=== PATIENT | female | born 1935 | race Caucasian/White ===

== ENCOUNTER → 2020-10-26 | Outpatient (CLI) | payer OTHER | LOC: SJCVCIMAG 08:24 | PROVIDERS: ATTEND Nuclear Medicine Nuclear Cardiology | DX: I73.9 Peripheral vascular disease, unspecified (principal); I10 Essential (primary) hypertension; L97.929 Non-pressure chronic ulcer of unspecified part of left lower leg with unspecified severity; E78.00 Pure hypercholesterolemia, unspecified; I48.0 Paroxysmal atrial fibrillation; I35.0 Nonrheumatic aortic (valve) stenosis; F17.200 Nicotine dependence, unspecified, uncomplicated; Z90.49 Acquired absence of other specified parts of digestive tract; Z90.710 Acquired absence of both cervix and uterus; Z79.899 Other long term (current) drug therapy; Z82.49 Family history of ischemic heart disease and other diseases of the circulatory system ==

== ENCOUNTER → 2020-11-07 | Outpatient (CLI) | payer OTHER | LOC: HYPER 09:15 | PROVIDERS: ATTEND Emergency Medicine | DX: T87.81 Dehiscence of amputation stump (principal); I70.245 Atherosclerosis of native arteries of left leg with ulceration of other part of foot; L97.522 Non-pressure chronic ulcer of other part of left foot with fat layer exposed; I25.2 Old myocardial infarction; I48.0 Paroxysmal atrial fibrillation; I35.0 Nonrheumatic aortic (valve) stenosis; F41.9 Anxiety disorder, unspecified; F32.9 Major depressive disorder, single episode, unspecified; F17.200 Nicotine dependence, unspecified, uncomplicated; Z95.828 Presence of other vascular implants and grafts; Z90.49 Acquired absence of other specified parts of digestive tract; Z90.710 Acquired absence of both cervix and uterus; Z96.653 Presence of artificial knee joint, bilateral; Z95.818 Presence of other cardiac implants and grafts; Y83.5 Amputation of limb(s) as the cause of abnormal reaction of the patient, or of later complication, without mention of misadventure at the time of the procedure ==

== ENCOUNTER → 2020-11-22 | Outpatient (CLI) | payer OTHER | LOC: SJCVCIMAG 07:54 | PROVIDERS: ATTEND Internal Medicine Cardiovascular Disease | DX: I08.8 Other rheumatic multiple valve diseases (principal); I65.23 Occlusion and stenosis of bilateral carotid arteries; I11.9 Hypertensive heart disease without heart failure; I48.0 Paroxysmal atrial fibrillation; I73.9 Peripheral vascular disease, unspecified; R06.00 Dyspnea, unspecified; R53.83 Other fatigue; E78.00 Pure hypercholesterolemia, unspecified; F17.200 Nicotine dependence, unspecified, uncomplicated; Z98.890 Other specified postprocedural states; Z90.49 Acquired absence of other specified parts of digestive tract; Z79.899 Other long term (current) drug therapy; Z82.49 Family history of ischemic heart disease and other diseases of the circulatory system ==

== ENCOUNTER → 2020-11-22 | Outpatient (CLI) | payer OTHER | LOC: HYPER 08:18 | PROVIDERS: ATTEND Emergency Medicine | DX: T87.81 Dehiscence of amputation stump (principal); I70.245 Atherosclerosis of native arteries of left leg with ulceration of other part of foot; L97.522 Non-pressure chronic ulcer of other part of left foot with fat layer exposed; I25.2 Old myocardial infarction; I48.0 Paroxysmal atrial fibrillation; I35.0 Nonrheumatic aortic (valve) stenosis; F41.9 Anxiety disorder, unspecified; F32.9 Major depressive disorder, single episode, unspecified; F17.200 Nicotine dependence, unspecified, uncomplicated; Z95.828 Presence of other vascular implants and grafts; Z90.49 Acquired absence of other specified parts of digestive tract; Z90.710 Acquired absence of both cervix and uterus; Z96.653 Presence of artificial knee joint, bilateral; Z95.818 Presence of other cardiac implants and grafts; Y83.5 Amputation of limb(s) as the cause of abnormal reaction of the patient, or of later complication, without mention of misadventure at the time of the procedure ==

== ENCOUNTER → 2020-12-11 | Outpatient (CLI) | payer OTHER | LOC: SJCVCIMAG 12-04 10:22 | PROVIDERS: ATTEND Internal Medicine Cardiovascular Disease | DX: I11.9 Hypertensive heart disease without heart failure (principal); I48.91 Unspecified atrial fibrillation; R06.00 Dyspnea, unspecified; R53.83 Other fatigue; E78.5 Hyperlipidemia, unspecified; I25.10 Atherosclerotic heart disease of native coronary artery without angina pectoris; I73.9 Peripheral vascular disease, unspecified; F17.200 Nicotine dependence, unspecified, uncomplicated; Z79.899 Other long term (current) drug therapy ==

== ENCOUNTER → 2021-05-08 | Outpatient (CLI) | payer OTHER | LOC: SJCVCIMAG 11:54 | PROVIDERS: ATTEND Internal Medicine Cardiovascular Disease | DX: I70.201 Unspecified atherosclerosis of native arteries of extremities, right leg (principal); E78.00 Pure hypercholesterolemia, unspecified; I10 Essential (primary) hypertension; I48.91 Unspecified atrial fibrillation; F17.200 Nicotine dependence, unspecified, uncomplicated; Z72.89 Other problems related to lifestyle; Z82.49 Family history of ischemic heart disease and other diseases of the circulatory system; Z79.899 Other long term (current) drug therapy ==

== ENCOUNTER → 2021-05-13 | Outpatient (CLI) | payer OTHER ==
[2021-05-13] VITALS (8 sets, daily range): BP systolic 111–133; BP diastolic 57–91
[~2021-05-13] VITALS: Ht 167.6 cm; Wt 46.3 kg
[~2021-05-13] MED LIST: AMIODARONE HCL400 MG PO; COZAAR 25 MG TA25 M1 PO; ELIQUIS2.5 MG PO; LINZESS290 MCG PO; PLAVIX 75 MG TA75 MG PO; ROSUVASTATIN CA20 MG PO; TOPROL XL100 MG PO; TOPROL XL50 MG PO
[2021-05-13 10:25] LABS: HEMATOCRIT 36.8 % (37.0-47.0); HEMOGLOBIN 11.4 gm/dL (12.0-15.0); MCH 24.6 pg (26.0-34.0); MCV 79.5 fL (80.0-100.0); RBC 4.63 mil/uL (4.20-5.00); RDW 27.3 % (10.5-14.5); WBC 6.4 thou/uL (4.0-11.0)
[2021-05-13 10:42] LABS: CALCIUM 8.8 mg/dL (8.5-10.1); CREATININE 0.8 mg/dL (0.6-1.0); POTASSIUM 3.8 mmol/L (3.5-5.1)
--- NOTE | 2021-05-13 11:22 | EKG ---
[place] [address] [facility] [employer] [employer] [place] [address] ELECTROCARDIOGRAM REPORT Name: HYUN CRAWFORD Room #: REG [facility]#: [id number] Admission: 05/13/21 Attend Phys: Ant Springer MD Discharge: Date of : 37 Report #: [id number] [facility] Test Date: 2021-05-13 Test Time: 09:58:12 Pat Name: HYUN CRAWFORD Department: Room: Gender: F At Risk Specialist: [facility] : 1935 Requested By: Ant Springer Order Number: [id number] : Joseluis Nguyễn Measurements Intervals [place] Rate: 129 P: [place]: QRS: 35 QRSD: 76 T: 256 QT: 279 QTc: 409 Interpretive Statements Atrial fibrillation Anteroseptal infarct, old Repolarization abnormality, prob rate related No previous ECG available for comparison Electronically Signed On 05-13-2021 11:22:09 [employer] by Joseluis Nguyễn [email or web address] <ELECTRONICALLY SIGNED> By: Joseluis Nguyễn MD, [facility] 05/13/21 [id number] Joseluis Nguyễn MD, FACC /EPI
--- NOTE | 2021-05-13 16:42 | 2DMMODE ---
[facility] [place] [address] 2 D/M-MODE ECHOCARDIOGRAM Name: HYUN CRAWFORD Room #: REG LANA [facility]#: [id number] Admission: 05/13/21 Attend Phys: Ant Springer MD Discharge: Date of : 37 Report #: [id number] THIS REPORT FOR: cc: RUBY BOYLE FAMILY PHYSICIAN or PCP Giuseppe Richard MD [facility] ~ APPROVED REPORT Study performed: 05/13/2021 15:29:10 EXAM: Comprehensive 2D, Doppler, and color-flow Echocardiogram Patient Location: Holding Status: routine BSA: 1.50 HR: 120 bpm BP: 131/91 mmHg Rhythm: Atrial Fibrillation Other Information Study Quality: Good Indications Aortic stenosis, Afib. (Heart rate ranged from 90s-130s). 2D Dimensions IVSd: 11.86 (7-11mm) LVOT Diam: 19.00 (18-24mm) LVDd: 44.10 mm PWd: 11.86 (7-11mm) LVDs: 36.05 (25-40mm) Left Atrium: 41.99 (27-40mm) Aortic Root: 27.80 mm Volumes Left Atrial Volume (Systole) Single Plane 4CH: 112.82 mL Single Plane 2CH: 90.84 mL Aortic Valve AoV Peak Zain.: 2.98 m/s AO Peak Gr.: 35.42 mmHg LVOT Max P.77 mmHg AO Mean Gr.: 21.78 mmHg AO V2 Mean: 2.24 m/s LVOT Max V: 0.44 m/s AO V2 VTI: 175.61 cm [facility] [address] [place] [address] 2 D/M-MODE ECHOCARDIOGRAM Name: HYUN CRAWFORD Room #: REG CL [facility]#: [id number] Admission: 05/13/21 Attend Phys: Ant Springer, Discharge: Date of : 37 Report #: [id number] Vmax: 0.42 cm2 Mitral Valve MV Decel. Time: 168.15 ms MV E Max Zain.: 1.17 m/s Pulmonary Valve PV Peak Zain.: 0.58 m/s PV Peak Gr.: 1.33 mmHg Tricuspid Valve TR Peak Zain.: 2.80 m/s RAP Estimate: 15.00 mmHg TR Peak Gr.: 32.00 mmHg PA Pressure: 47.00 mmHg Left Ventricle The left ventricle is normal size. Mild concentric left ventricular hypertrophy. Left ventricular systolic function is moderately decreased. LVEF is 35-40%. This study is not technically sufficient to allow evaluation of the LV diastolic function due to atrial fibrillation. Right Ventricle The right ventricle is normal size. Right ventricle is mildly hypokinetic. Atria Left atrium is severely dilated. Right atrium is moderately dilated. Aortic Valve Aortic valve is heavily calcified. Trace aortic regurgitation. There is severe valvular aortic stenosis. Calculated aortic valve area is 0.5 - 0.6 cm2 with maximum pressure gradient of 22mmHg and mean pressure gradient of 13mmHg. (Underestimated gradients with moderate demise in LV function). Mitral Valve Mitral valve leaflets are moderately sclerotic. Heavily calcified annulus. Mild to moderate mitral regurgitation. No evidence of mitral valve stenosis. Tricuspid Valve The tricuspid valve is normal in structure. Moderate to severe tricuspid regurgitation. Estimated PAP is 45mmHg. Pulmonic Valve [facility] [address] [place] [address] 2 D/M-MODE ECHOCARDIOGRAM Name: YVETTEHYUN Room #: REG Carolyn#: [id number] Admission: 05/13/21 Attend Phys: Ant Springer, Discharge: Date of : 37 Report #: [id number] The pulmonary valve is normal in structure. Trace pulmonic regurgitation. Great Vessels The aortic root is normal in size. The ascending aorta is normal in size. IVC is dilated and collapses <50% with inspiration. Pericardium Small posterior pericardial fluid noted. <Conclusion> The left ventricle is normal size. Mild concentric left ventricular hypertrophy. Left ventricular systolic function is moderately decreased. LVEF is 35-40%. This study is not technically sufficient to allow evaluation of the LV diastolic function due to atrial fibrillation. The right ventricle is normal size. Left atrium is severely dilated. Right atrium is moderately dilated. Aortic valve is heavily calcified. Trace aortic regurgitation. There is severe valvular aortic stenosis. Calculated aortic valve area is 0.5 - 0.6 cm2 with maximum pressure gradient of 22mmHg and mean pressure gradient of 13mmHg. (Underestimated gradients with moderate demise in LV function). Mitral valve leaflets are moderately sclerotic. Heavily calcified annulus. Mild to moderate mitral regurgitation. Moderate to severe tricuspid regurgitation. Estimated PAP is 45mmHg. The aortic root is normal in size. Small posterior pericardial fluid noted. <ELECTRONICALLY SIGNED> By: Giuseppe Richard MD, FACC 05/13/211640 40 40 Giuseppe Richard MD, FACC /INF
== END | disposition home or self-care (01) ==
LOC: CATH 09:27
PROVIDERS: ATTEND Nuclear Medicine Nuclear Cardiology
DX: I70.248 Atherosclerosis of native arteries of left leg with ulceration of other part of lower leg (principal); I70.238 Atherosclerosis of native arteries of right leg with ulceration of other part of lower leg; L97.919 Non-pressure chronic ulcer of unspecified part of right lower leg with unspecified severity; L97.929 Non-pressure chronic ulcer of unspecified part of left lower leg with unspecified severity; I70.1 Atherosclerosis of renal artery; I10 Essential (primary) hypertension; I48.0 Paroxysmal atrial fibrillation; I25.10 Atherosclerotic heart disease of native coronary artery without angina pectoris; E78.00 Pure hypercholesterolemia, unspecified; I25.2 Old myocardial infarction; F17.210 Nicotine dependence, cigarettes, uncomplicated; Z98.890 Other specified postprocedural states; Z79.899 Other long term (current) drug therapy; Z96.653 Presence of artificial knee joint, bilateral; Z90.710 Acquired absence of both cervix and uterus; Z79.01 Long term (current) use of anticoagulants

== ENCOUNTER → 2021-05-23 | Outpatient (CLI) | payer OTHER | LOC: SJCVC 10:04 | PROVIDERS: ATTEND Internal Medicine Cardiovascular Disease | DX: R94.31 Abnormal electrocardiogram [ECG] [EKG] (principal); I45.89 Other specified conduction disorders; I65.23 Occlusion and stenosis of bilateral carotid arteries; I73.9 Peripheral vascular disease, unspecified; I48.0 Paroxysmal atrial fibrillation; I35.0 Nonrheumatic aortic (valve) stenosis; I10 Essential (primary) hypertension; L97.919 Non-pressure chronic ulcer of unspecified part of right lower leg with unspecified severity; E78.00 Pure hypercholesterolemia, unspecified; F17.200 Nicotine dependence, unspecified, uncomplicated; Z72.89 Other problems related to lifestyle; Z79.899 Other long term (current) drug therapy; Z82.49 Family history of ischemic heart disease and other diseases of the circulatory system ==

== ENCOUNTER → 2021-05-30 | Outpatient (CLI) | payer OTHER ==
[~2021-05-30] VITALS: Ht 167.6 cm; Wt 47.6 kg
[~2021-05-30] MED LIST changes: +FUROSEMIDE 40 M40 MG PO; +K-DUR10 MEQ PO
[2021-05-30 09:21] VITALS: BP 152/75
[2021-05-30 09:47] LABS: HEMATOCRIT 33.8 % (37.0-47.0); HEMOGLOBIN 10.7 gm/dL (12.0-15.0); MCH 24.9 pg (26.0-34.0); MCHC 31.6 g/dL (28.0-37.0); MCV 78.9 fL (80.0-100.0); RBC 4.28 mil/uL (4.20-5.00); RDW 25.2 % (10.5-14.5); WBC 7.2 thou/uL (4.0-11.0)
[2021-05-30 10:07] LABS: CREATININE 1.2 mg/dL (0.6-1.0)
--- NOTE | 2021-05-30 14:30 | NUR ---
PT RECEIVED FROM PACU WITH BEDSIDE REPORT. PT A/OX3 WITH NO C/O AT THIS TIME. SITE CHECKED AND WARM BLANKET PROVIDED
== END | disposition home or self-care (01) ==
LOC: CATH 07:40
PROVIDERS: ATTEND Nuclear Medicine Nuclear Cardiology
DX: I70.238 Atherosclerosis of native arteries of right leg with ulceration of other part of lower leg (principal); L97.919 Non-pressure chronic ulcer of unspecified part of right lower leg with unspecified severity; M79.604 Pain in right leg; I10 Essential (primary) hypertension; E78.00 Pure hypercholesterolemia, unspecified; I48.91 Unspecified atrial fibrillation; I25.2 Old myocardial infarction; F17.210 Nicotine dependence, cigarettes, uncomplicated; Z98.890 Other specified postprocedural states; Z90.49 Acquired absence of other specified parts of digestive tract; Z90.710 Acquired absence of both cervix and uterus; Z96.653 Presence of artificial knee joint, bilateral; Z79.899 Other long term (current) drug therapy; Z79.01 Long term (current) use of anticoagulants
CPT/HCPCS: 62110; 62900; 70005

== ENCOUNTER → 2021-06-13 | Outpatient (CLI) | payer OTHER | LOC: HYPER 09:58 | PROVIDERS: ATTEND Emergency Medicine | DX: T87.81 Dehiscence of amputation stump (principal); I70.235 Atherosclerosis of native arteries of right leg with ulceration of other part of foot; L97.512 Non-pressure chronic ulcer of other part of right foot with fat layer exposed; L98.492 Non-pressure chronic ulcer of skin of other sites with fat layer exposed; I25.2 Old myocardial infarction; I48.0 Paroxysmal atrial fibrillation; I35.0 Nonrheumatic aortic (valve) stenosis; F41.9 Anxiety disorder, unspecified; F32.9 Major depressive disorder, single episode, unspecified; F17.200 Nicotine dependence, unspecified, uncomplicated; Z95.828 Presence of other vascular implants and grafts; Z90.49 Acquired absence of other specified parts of digestive tract; Z90.710 Acquired absence of both cervix and uterus; Z79.02 Long term (current) use of antithrombotics/antiplatelets; Z96.653 Presence of artificial knee joint, bilateral; Z95.818 Presence of other cardiac implants and grafts; Y83.5 Amputation of limb(s) as the cause of abnormal reaction of the patient, or of later complication, without mention of misadventure at the time of the procedure ==

== ENCOUNTER → 2021-07-15 | Outpatient (CLI) | payer OTHER | LOC: HYPER 07:44 | PROVIDERS: ATTEND Emergency Medicine | DX: T87.81 Dehiscence of amputation stump (principal); I70.235 Atherosclerosis of native arteries of right leg with ulceration of other part of foot; L97.512 Non-pressure chronic ulcer of other part of right foot with fat layer exposed; L98.492 Non-pressure chronic ulcer of skin of other sites with fat layer exposed; I25.2 Old myocardial infarction; I48.0 Paroxysmal atrial fibrillation; I35.0 Nonrheumatic aortic (valve) stenosis; F41.9 Anxiety disorder, unspecified; F32.9 Major depressive disorder, single episode, unspecified; F17.200 Nicotine dependence, unspecified, uncomplicated; Z95.828 Presence of other vascular implants and grafts; Z90.49 Acquired absence of other specified parts of digestive tract; Z90.710 Acquired absence of both cervix and uterus; Z79.02 Long term (current) use of antithrombotics/antiplatelets; Z96.653 Presence of artificial knee joint, bilateral; Z95.818 Presence of other cardiac implants and grafts; Y83.5 Amputation of limb(s) as the cause of abnormal reaction of the patient, or of later complication, without mention of misadventure at the time of the procedure ==